=== PATIENT | female | born 1940 | race Caucasian/White ===

== ENCOUNTER 2018-01-13 10:15 | Inpatient (IN) | payer OTHER ==
[~2018-01-13] VITALS: Ht 160 cm; Wt 69.9 kg
[2018-01-13] MEDS ORDERED: DIOVAN320 MG PO (10:59)
[2018-01-13] MEDS ORDERED: COREG CR20 MG PO (11:00)
[2018-01-13] MEDS ORDERED: ASA325 MG PO (11:00)
[2018-01-13] MEDS ORDERED: CRESTOR20 MG PO (11:00)
[2018-01-13] MEDS ORDERED: PLAVIX75 MG PO (11:01)
[2018-01-13] MEDS ORDERED: LEVOXYL25 MCG PO (11:02)
[2018-01-13] MEDS ORDERED: MULTIVITAMINS1 EAC9 PO (11:03)
== END 2018-01-22 13:54 | DRG 470 ==
LOC: SURG 01-19 05:15 → O/R 01-19 05:15 → SURH 01-19 05:30 → SURG 01-19 16:53
PROVIDERS: Orthopaedic Surgery
PROC: 0SRD0J9 Replacement of Left Knee Joint with Synthetic Substitute, Cemented, Open Approach (ICD-10-PCS; principal; 2018-01-19 05:30)
DX: M17.12 Unilateral primary osteoarthritis, left knee (principal); D62 Acute posthemorrhagic anemia; I10 Essential (primary) hypertension; E03.8 Other specified hypothyroidism; R73.01 Impaired fasting glucose